=== PATIENT | female | born 1995 | race Caucasian/White ===

== ENCOUNTER 2018-03-14 12:59 | Emergency (ER) | payer MEDICAID, OTHER ==
[2018-03-14 15:07] LABS: BASO # 0.1 10^3/uL (0.0-0.2); BASO % 0.7 % (0.0-1.0); EOS # 0.4 10^3/uL (0.0-0.50); EOS % 4.9 % (0.0-3.0); HEMATOCRIT 40.4 % (36.0-47.0); HEMOGLOBIN 13.6 g/dl (12.0-15.5); IMMATURE GRANULOCYTE % 0.3 % (0-3.0); LYMPH # 3.2 10^3/uL (1.5-6.5); MEAN CORPUSCULAR HEMOGLOBIN 29.2 pg (27.0-33.0); MEAN CORPUSCULAR HGB CONC 33.7 g/dl (32.0-36.5); MEAN CORPUSCULAR VOLUME 86.9 fl (80.0-96.0); MONO # 0.6 10^3/uL (0.0-0.8); MONO % 6.7 % (0.0-5.0); NEUTROPHILS # 4.7 10^3/uL (1.8-7.7); NEUTROPHILS % 52.4 % (36.0-66.0); PLATELET COUNT, AUTOMATED 327 10^3/uL (150-450); RED BLOOD COUNT 4.65 10^6/uL (4.00-5.40); RED CELL DISTRIBUTION WIDTH 12.9 % (11.5-14.5)
[2018-03-14 15:11] LABS: KETONE, URINE AUTO RFX NEGATIVE (NEGATIVE); MUCUS, URINE RFX SMALL (NEGATIVE); RBC, URINE AUTO RFX 5 /HPF (0-3); SQUAM EPITHELIAL CELL UR AURFX 7 /HPF (0-6); WBC, URINE AUTO RFX 3 /HPF (0-3)
[2018-03-14 15:12] LABS: LEUKOCYTE ESTERASE UR AUTO RFX 3+ (NEGATIVE); NITRITE, URINE AUTO RFX POSITIVE (NEGATIVE)
[2018-03-14 15:29] LABS: ANION GAP 8 MEQ/L (8-16); BLOOD UREA NITROGEN 7 MG/DL (7-18); CALCIUM LEVEL 9.2 MG/DL (8.5-10.1); CARBON DIOXIDE LEVEL 27 MEQ/L (21-32); CHLORIDE LEVEL 104 MEQ/L (98-107); CREATININE FOR GFR 0.61 MG/DL (0.55-1.30); GLOMERULAR FILTRATION RATE > 60.0 (>60); GLUCOSE, FASTING 103 MG/DL (70-100); POTASSIUM SERUM 3.8 MEQ/L (3.5-5.1); SODIUM LEVEL 139 MEQ/L (136-145)
[2018-03-14] MEDS: CIPROFLOXACIN 500 MG TAB PO (18:00)
[2018-03-14 18:29] LABS: CK-MB VALUE MASS < 1.0 NG/ML (<3.6); CPK CREATINE PHOSPHOKINASE 72 U/L (26-192); FREE THYROXINE INDEX 2.9 % (1.3-4.8); MB/CK RELATIVE INDEX 1.38 (< OR =4); T UPTAKE 31 % (30-39); THYROXINE (T4) 9.2 UG/DL (4.5-12.0); TROPONIN I < 0.02 NG/ML (< 0.10)
== END 2018-03-14 18:59 | disposition home or self-care (01) ==
LOC: M ED 12:59
DX: R07.89 Other chest pain (principal); R00.2 Palpitations; N39.0 Urinary tract infection, site not specified; J45.909 Unspecified asthma, uncomplicated
CPT/HCPCS: 93005